=== PATIENT | female | born 1970 | race African-American/Black ===

== ENCOUNTER 2021-11-06 18:25 | Inpatient (IN) | payer BC, OTHER ==
[~2021-11-06] VITALS: Ht 167.6 cm; Wt 82.6 kg
[2021-11-06 19:50] VITALS: BP 115/71
[2021-11-06 20:00] VITALS: BP 115/71
[2021-11-06] MEDS ORDERED: ACETAMINOPHEN 650MG/20.3ML UDC PO PRN (21:15)
[2021-11-06] MEDS ORDERED: SODIUM CHLORIDE 0.9% INJ 3ML FLUSH IVF PRN (21:15)
[2021-11-06] MEDS ORDERED: HYDRALAZINE 20MG/ML VIAL IV PRN ×2 (21:15)
[2021-11-06] MEDS ORDERED: ATORVASTATIN CALCIUM 40MG TABLET PO NR (21:45)
[2021-11-06] MEDS ORDERED: HYDRALAZINE 10 MG in SODIUM CHLORIDE 0.9% 49.5 ML IV PRN (21:45)
[2021-11-06] MEDS: LABETALOL HCL 200MG TABLET PO SCH (21:57)
[2021-11-07] MEDS ORDERED: AMLO5TAB4 PO (01:09)
[2021-11-07] MEDS ORDERED: MULT-1146 PO (01:09)
[2021-11-07] MEDS ORDERED: ASCORBIC ACID 2000 MG PO (01:09)
[2021-11-07] MEDS ORDERED: LISI40TA13 MT (01:09)
[2021-11-07] MEDS ORDERED: VIT D PO (01:09)
[2021-11-07] MEDS: LABETALOL HCL 200MG TABLET PO SCH ×3 (06:13→21:55)
[2021-11-07] MEDS: PANTOPRAZOLE 40MG DR TABLET PO SCH (06:13)
[2021-11-07 06:35] LABS: BASOPHILS % 0.6 % (0.0-2.0); EOSINOPHILS % 1.5 % (0.0-5.0); HEMATOCRIT. 36.3 % (36.0-48.0); HEMOGLOBIN. 11.9 g/dL (12.0-16.0); MEAN CORPUSCULAR HEMOGLOBIN 23.2 pg (28.0-32.0); MEAN CORPUSCULAR VOLUME 70.9 fL (81.0-99.0); MONOCYTES % 9.5 % (2.0-8.0); NEUTROPHILS % 68.4 % (40.0-76.0); RED BLOOD CELL COUNT 5.12 mill/uL (4.2-5.4); RED CELL DISTRIBUTION WIDTH 17.6 % (11.6-14.6)
[2021-11-07 06:56] LABS: CHLORIDE 111 mEq/L (98-107)
[2021-11-07 08:00] VITALS: BP 129/102
[2021-11-07 08:44] LABS: MEAN PLATELET VOLUME 10.6 fl (7.4-10.4); PLATELET 56 x1000/uL (130-400)
[2021-11-07] MEDS: AMLODIPINE 10MG TABLET PO SCH (09:46)
[2021-11-07] MEDS: LISINOPRIL 40MG TABLET PO SCH (09:46)
[2021-11-07 15:20] VITALS: BP 129/75
[2021-11-07 20:00] VITALS: BP 126/78
[2021-11-07] MEDS: ATORVASTATIN CALCIUM 40MG TABLET PO SCH (21:55)
[2021-11-08 06:09] LABS: CHLORIDE 109 mEq/L (98-107)
[2021-11-08 06:28] LABS: TOTAL IRON BINDING CAPACITY 336 ug/dL (250-450)
[2021-11-08 06:32] LABS: BASOPHILS % 0.3 % (0.0-2.0); EOSINOPHILS % 1.7 % (0.0-5.0); HEMATOCRIT. 38.2 % (36.0-48.0); HEMOGLOBIN. 12.4 g/dL (12.0-16.0); LYMPHOCYTES % 21.9 % (20.0-50.0); MEAN CORPUSCULAR HEMOGLOBIN 23.4 pg (28.0-32.0); MEAN CORPUSCULAR VOLUME 72.1 fL (81.0-99.0); MONOCYTES % 7.7 % (2.0-8.0); NEUTROPHILS % 68.4 % (40.0-76.0)
[2021-11-08 06:49] LABS: FOLIC ACID (FOLATE) SERUM 17.4 ng/mL (>5.38)
[2021-11-08] MEDS: LABETALOL HCL 200MG TABLET PO SCH ×3 (06:51→20:27)
[2021-11-08] MEDS: PANTOPRAZOLE 40MG DR TABLET PO SCH (06:51)
[2021-11-08 07:48] VITALS: BP 109/58
[2021-11-08 10:21] VITALS: BP 116/71
[2021-11-08] MEDS: AMLODIPINE 10MG TABLET PO SCH (10:22)
[2021-11-08] MEDS: LISINOPRIL 40MG TABLET PO SCH (10:23)
[2021-11-08 12:04] LABS: MEAN PLATELET VOLUME 10.3 fl (7.4-10.4); PLATELET 51 x1000/uL (130-400)
[2021-11-08 14:08] VITALS: BP 115/68
[2021-11-08] MEDS: FERROUS SULFATE 325MG TABLET PO SCH (17:17)
[2021-11-08 20:00] VITALS: BP 112/69
[2021-11-08] MEDS: ATORVASTATIN CALCIUM 40MG TABLET PO SCH (20:26)
[2021-11-09] MEDS: PANTOPRAZOLE 40MG DR TABLET PO SCH (06:07)
[2021-11-09] MEDS: LABETALOL HCL 200MG TABLET PO SCH ×3 (06:08→20:15)
[2021-11-09 07:46] VITALS: BP 117/68
[2021-11-09] MEDS: FERROUS SULFATE 325MG TABLET PO SCH ×3 (08:38→16:39)
[2021-11-09] MEDS: ASCORBIC ACID 500 MG TABLET PO SCH (08:39)
[2021-11-09] MEDS: AMLODIPINE 10MG TABLET PO SCH (08:39)
[2021-11-09] MEDS: LISINOPRIL 40MG TABLET PO SCH (08:39)
[2021-11-09 14:33] VITALS: BP 106/69
[2021-11-09 20:00] VITALS: BP 135/81
[2021-11-09] MEDS: ATORVASTATIN CALCIUM 40MG TABLET PO SCH (20:16)
[2021-11-09] MEDS: ACETAMINOPHEN 325MG TABLET PO PRN (22:09)
[2021-11-10] MEDS: LABETALOL HCL 200MG TABLET PO SCH ×2 (06:00→20:56)
[2021-11-10] MEDS: PANTOPRAZOLE 40MG DR TABLET PO SCH (06:13)
[2021-11-10 08:00] VITALS: BP 106/60
[2021-11-10] MEDS: AMLODIPINE 10MG TABLET PO SCH (09:00)
[2021-11-10] MEDS: LISINOPRIL 40MG TABLET PO SCH (09:00)
[2021-11-10] MEDS: FERROUS SULFATE 325MG TABLET PO SCH ×3 (09:37→17:54)
[2021-11-10] MEDS: ASCORBIC ACID 500 MG TABLET PO SCH (09:37)
[2021-11-10 20:00] VITALS: BP 141/83
[2021-11-10] MEDS: ATORVASTATIN CALCIUM 40MG TABLET PO SCH (20:56)
[2021-11-11] MEDS: PANTOPRAZOLE 40MG DR TABLET PO SCH (06:29)
[2021-11-11 08:00] VITALS: BP 140/84
[2021-11-11] MEDS: ASCORBIC ACID 500 MG TABLET PO SCH (09:29)
[2021-11-11] MEDS: FERROUS SULFATE 325MG TABLET PO SCH ×3 (09:29→17:30)
[2021-11-11] MEDS: LABETALOL HCL 200MG TABLET PO SCH ×2 (09:30→20:33)
[2021-11-11] MEDS: AMLODIPINE 10MG TABLET PO SCH (09:30)
[2021-11-11] MEDS: LISINOPRIL 40MG TABLET PO SCH (09:31)
[2021-11-11 20:00] VITALS: BP 132/75
[2021-11-11] MEDS: ATORVASTATIN CALCIUM 40MG TABLET PO SCH (20:31)
[2021-11-12] MEDS: PANTOPRAZOLE 40MG DR TABLET PO SCH (06:41)
[2021-11-12 08:01] VITALS: BP 104/58
[2021-11-12] MEDS: LABETALOL HCL 200MG TABLET PO SCH ×2 (09:00→21:21)
[2021-11-12] MEDS: LISINOPRIL 40MG TABLET PO SCH (09:00)
[2021-11-12] MEDS: AMLODIPINE 10MG TABLET PO SCH (09:00)
[2021-11-12] MEDS: ASCORBIC ACID 500 MG TABLET PO SCH (09:02)
[2021-11-12] MEDS: FERROUS SULFATE 325MG TABLET PO SCH ×3 (09:03→17:02)
[2021-11-12 20:00] VITALS: BP 123/74
[2021-11-12] MEDS: ATORVASTATIN CALCIUM 40MG TABLET PO SCH (21:21)
[2021-11-13 06:33] LABS: BASOPHILS % 0.4 % (0.0-2.0); EOSINOPHILS % 2.3 % (0.0-5.0); HEMATOCRIT. 36.1 % (36.0-48.0); HEMOGLOBIN. 11.7 g/dL (12.0-16.0); LYMPHOCYTES % 23.3 % (20.0-50.0); MEAN CORPUSCULAR HEMOGLOBIN 23.2 pg (28.0-32.0); MEAN CORPUSCULAR VOLUME 71.3 fL (81.0-99.0); MONOCYTES % 11.5 % (2.0-8.0); NEUTROPHILS % 62.5 % (40.0-76.0); RED BLOOD CELL COUNT 5.06 mill/uL (4.2-5.4); RED CELL DISTRIBUTION WIDTH 17.5 % (11.6-14.6)
[2021-11-13 06:35] LABS: CHLORIDE 111 mEq/L (98-107)
[2021-11-13] MEDS: PANTOPRAZOLE 40MG DR TABLET PO SCH (06:48)
[2021-11-13 07:49] VITALS: BP 140/78
[2021-11-13 08:03] LABS: MEAN PLATELET VOLUME 9.8 fl (7.4-10.4)
[2021-11-13 08:04] LABS: PLATELET ESTIMATE MARKEDLY DECREASED
[2021-11-13 08:05] LABS: PLATELET 40 x1000/uL (130-400)
[2021-11-13] MEDS: AMLODIPINE 10MG TABLET PO SCH (10:06)
[2021-11-13] MEDS: ASCORBIC ACID 500 MG TABLET PO SCH (10:06)
[2021-11-13] MEDS: FERROUS SULFATE 325MG TABLET PO SCH ×3 (10:06→16:50)
[2021-11-13] MEDS: LABETALOL HCL 200MG TABLET PO SCH ×2 (10:06→21:53)
[2021-11-13] MEDS: LISINOPRIL 40MG TABLET PO SCH (10:06)
[2021-11-13 19:09] LABS: 25-HYDROXY VITAMIN D3 23 ng/mL (.)
[2021-11-13 20:00] VITALS: BP 106/65
[2021-11-13] MEDS: ATORVASTATIN CALCIUM 40MG TABLET PO SCH (21:54)
[2021-11-14] MEDS: PANTOPRAZOLE 40MG DR TABLET PO SCH (07:10)
[2021-11-14 08:00] VITALS: BP 119/73
[2021-11-14] MEDS: FERROUS SULFATE 325MG TABLET PO SCH ×3 (08:57→18:59)
[2021-11-14] MEDS: ASCORBIC ACID 500 MG TABLET PO SCH (08:57)
[2021-11-14] MEDS: LISINOPRIL 40MG TABLET PO SCH (08:58)
[2021-11-14] MEDS: LABETALOL HCL 200MG TABLET PO SCH ×2 (08:58→20:48)
[2021-11-14] MEDS: AMLODIPINE 10MG TABLET PO SCH (09:17)
[2021-11-14] MEDS: ACETAMINOPHEN 325MG TABLET PO PRN (12:34)
[2021-11-14] MEDS ORDERED: ERGOCALCIFEROL 50000UNITS CAPSULE PO SCH (14:30)
[2021-11-14 20:00] VITALS: BP 115/71
[2021-11-14] MEDS: ATORVASTATIN CALCIUM 40MG TABLET PO SCH (20:48)
[2021-11-15] MEDS: PANTOPRAZOLE 40MG DR TABLET PO SCH (06:24)
[2021-11-15 07:52] VITALS: BP 102/51
[2021-11-15] MEDS: LABETALOL HCL 200MG TABLET PO SCH ×2 (09:00→20:32)
[2021-11-15] MEDS: AMLODIPINE 10MG TABLET PO SCH (09:09)
[2021-11-15] MEDS: FERROUS SULFATE 325MG TABLET PO SCH ×3 (09:09→17:00)
[2021-11-15] MEDS: ASCORBIC ACID 500 MG TABLET PO SCH (09:09)
[2021-11-15] MEDS: LISINOPRIL 40MG TABLET PO SCH (09:20)
[2021-11-15 09:30] LABS: BASOPHILS % 0.7 % (0.0-2.0); EOSINOPHILS % 1.9 % (0.0-5.0); HEMATOCRIT. 37.2 % (36.0-48.0); HEMOGLOBIN. 11.7 g/dL (12.0-16.0); LYMPHOCYTES % 19.1 % (20.0-50.0); MEAN CORPUSCULAR HEMOGLOBIN 22.7 pg (28.0-32.0); MEAN CORPUSCULAR VOLUME 71.9 fL (81.0-99.0); MEAN PLATELET VOLUME 9.4 fl (7.4-10.4); MONOCYTES % 6.6 % (2.0-8.0); NEUTROPHILS % 71.7 % (40.0-76.0); PLATELET 56 x1000/uL (130-400); RED BLOOD CELL COUNT 5.17 mill/uL (4.2-5.4); RED CELL DISTRIBUTION WIDTH 17.1 % (11.6-14.6)
[2021-11-15 09:36] LABS: CHLORIDE 110 mEq/L (98-107)
[2021-11-15] MEDS ORDERED: ACET650S25 PO (16:45)
[2021-11-15] MEDS ORDERED: LABE200T9 PO (16:45)
[2021-11-15] MEDS ORDERED: LIP40 PO (16:45)
[2021-11-15] MEDS ORDERED: AMLO10TA80 PO (16:45)
[2021-11-15] MEDS: LISINOPRIL 20MG TABLET PO SCH (19:25)
[2021-11-15 20:00] VITALS: BP 117/75
[2021-11-15] MEDS: ATORVASTATIN CALCIUM 40MG TABLET PO SCH (20:32)
[2021-11-16] MEDS: PANTOPRAZOLE 40MG DR TABLET PO SCH (06:00)
[2021-11-16 07:49] VITALS: BP 121/64
[2021-11-16] MEDS: FERROUS SULFATE 325MG TABLET PO SCH (08:41)
[2021-11-16] MEDS: AMLODIPINE 10MG TABLET PO SCH (08:41)
[2021-11-16] MEDS: LISINOPRIL 20MG TABLET PO SCH (08:41)
[2021-11-16] MEDS: ASCORBIC ACID 500 MG TABLET PO SCH (08:41)
[2021-11-16] MEDS: LABETALOL HCL 200MG TABLET PO SCH (08:42)
[2021-11-16 11:58] VITALS: BP 121/64
== END 2021-11-16 13:13 | disposition home health service (06) | DRG 65 ==
PROVIDERS: ADMIT Physical Medicine & Rehabilitation Spinal Cord Injury Medicine; ATTEND Internal Medicine Nephrology
DX: I62.9 Nontraumatic intracranial hemorrhage, unspecified (principal); G81.91 Hemiplegia, unspecified affecting right dominant side; D69.3 Immune thrombocytopenic purpura; D63.8 Anemia in other chronic diseases classified elsewhere; E87.8 Other disorders of electrolyte and fluid balance, not elsewhere classified; F39 Unspecified mood [affective] disorder; F41.9 Anxiety disorder, unspecified; G31.9 Degenerative disease of nervous system, unspecified; D50.9 Iron deficiency anemia, unspecified; D70.9 Neutropenia, unspecified; E55.9 Vitamin D deficiency, unspecified; I10 Essential (primary) hypertension; K76.9 Liver disease, unspecified; Z20.822 Contact with and (suspected) exposure to COVID-19; R47.1 Dysarthria and anarthria; R53.1 Weakness; R53.81 Other malaise; Z76.82 Awaiting organ transplant status; Z82.49 Family history of ischemic heart disease and other diseases of the circulatory system; Z88.0 Allergy status to penicillin; Z79.899 Other long term (current) drug therapy
CPT/HCPCS: 36415; 80048; 80053; 82306; 82607; 82728; 82746; 83540; 83550; 84134; 84443; 85025; 86038; 86803; 92523; 92610; 93970; 97110; 97112; 97116; 97162; 97166; 97530; 97535